=== PATIENT | male | born 2000 | race Caucasian/White ===

== ENCOUNTER 2024-01-09 19:08 | Emergency (ER) | payer BC, OTHER ==
--- NOTE | 2024-01-09 20:17 | RAD REPORT ---
EXAM DESCRIPTION: RAD - Hand Right 3 View - 01/09/2024 8:09 pm CLINICAL HISTORY: PAIN COMPARISON: No comparisons FINDINGS/IMPRESSION: Transverse oriented fracture of the mid fifth metacarpal diaphysis with minimal angulation.No significant focal degenerative changes.
--- NOTE | 2024-01-09 20:37 | EDPHYS ---
Physician Documentation [facility] Name: Julian Jamil Age: 24 yrs Sex: Male : 2000 Arrival Date: 01/09/2024 Time: 19:08 Bed 18 Private MD: ED Physician Braulio Smith HPI: 01/08 19:29 This 24 yrs old Male presents to ER via Ambulatory with complaints of Hand Injury. sb4 19:29 The patient or guardian reports injury, pain. The complaints affect the MCP of right sb4 little finger. Context: The problem was sustained at home, resulted from using own fist to strike, a solid object. Onset: The symptoms/episode began/occurred just prior to arrival. Modifying factors: The symptoms are alleviated by holding still, the symptoms are aggravated by movement. Associated signs and symptoms: The patient has no apparent associated signs or symptoms. The patient has not experienced similar symptoms in the past. The patient has not recently seen a physician. Historical: - Allergies: 19:21 No Known Allergies; jj7 - PMHx: 19:21 None; jj7 - PSHx: 19:21 None; jj7 - Immunization history:: Adult Immunizations up to date. - Infectious Disease History:: Denies. - Social history:: Smoking status: Patient reports the use of cigarette tobacco products, 2-3 A DAY, Reported history of juuling and/or vaping. Patient uses alcohol, but reports only rare drinking. ROS: 19:29 Constitutional: Negative for fever, chills, and weight loss, sb4 19:29 MS/extremity: Positive for injury or acute deformity, pain, swelling, of the dorsal aspect of proximal phalanx of right little finger and dorsum of right hand, 19:29 All other systems are negative, Exam: 19:29 Constitutional: This is a well developed, well nourished patient who is awake, alert, sb4 and in no acute distress. Head/Face: Normocephalic, atraumatic. Eyes: Extra-ocular motions intact. Periorbital areas with no swelling, redness, or edema. ENT: Mucous membranes moist. Skin: Warm, dry with normal turgor. Normal color with no rashes, no lesions, and no evidence of cellulitis. Neuro: Awake and alert, GCS 15, oriented to person, place, time, and situation. Motor strength 5/5 in all extremities. Sensory grossly intact. 19:29 Musculoskeletal/extremity: Sensation intact. Joints: the MCP of right little finger displays deformity, painful range of motion, swelling, tenderness, Vital Signs: 19:17 BP 153 / 79; Pulse 94; Resp 18; Temp 98.3; Pulse Ox 98% ; Weight 83.91 kg; Height 6 ft. jj7 3 in. ; Pain 5/10; 21:00 BP 122 / 64; Pulse 80; Resp 16; Temp 98.5(O); Pulse Ox 100% on R/A; Pain 4/10; tl4 19:17 Body Mass Index 23.12 (83.91 kg, 190.5 cm) jj7 19:17 Pain Scale: Adult jj7 21:00 Pain Scale: Adult tl4 MDM: 19:19 Patient medically screened. sb4 20:02 Independent interpretation of the following test(s) in the Emergency Department X-Ray: sb4 My interpretation is my interpretation of the hand xray image is acute nondisplaced fracture of shaft of right fifth metacarpal . 20:28 Data reviewed: vital signs, nurses notes, radiologic studies, and as a result, I will sb4 discharge patient. Counseling: I had a detailed discussion with the patient and/or guardian regarding the historical points, exam findings, and any diagnostic results supporting the discharge/admit diagnosis, radiology results, the need for outpatient follow up, a orthopedic surgeon, to return to the emergency department if symptoms worsen or persist or if there are any questions or concerns that arise at home. 01/08 19:24 Order name: Hand Right 3 View XRAY; Complete Time: 20:18 sb4 01/08 20:27 Order name: Ulnar Gutter splint; Complete Time: 21:16 sb4 Administered Medications: No medications were administered Disposition Summary: 01/09/24 20:36 Discharge Ordered Notes: Location: Home sb4 Problem: new sb4 Symptoms: have improved sb4 Condition: Stable sb4 Diagnosis - Nondisplaced fracture of shaft of fifth metacarpal bone, right hand sb4 Followup: sb4 - With: Jeff Mendoza MD - When: 1 week - Reason: Recheck today's complaints, Re-evaluation by your physician Discharge Instructions: - Discharge Summary Sheet sb4 - Boxer's Fracture sb4 Forms: - Patient Portal Instructions sb4 - Leadership Thank You Letter sb4 Signatures: Dispatcher [employer] Sandra Phelps RN RN jj7 Cassie Sigala PA-C PA-C sbJaycee
--- NOTE | 2024-01-09 20:37 | ER ---
Nurse's Notes [facility] Name: Julian Jamil Age: 24 yrs Sex: Male : 2000 Arrival Date: 01/09/2024 Time: 19:08 Bed 18 Private MD: Diagnosis: Nondisplaced fracture of shaft of fifth metacarpal bone, right hand Presentation: 01/08 19:17 Chief complaint: Patient states: PUNCHED A METAL SHED WITH HIS RIGHT HAND 30 MINUTES jj7 AGO. NOW HAVING PAIN AND SWELLING TO HAND. Coronavirus screen: At this time, the client does not indicate any symptoms associated with coronavirus-19. Ebola Screen: No symptoms or risks identified at this time. Initial Sepsis Screen: Does the patient meet any 2 criteria? HR > 90 bpm. Yes Does the patient have a suspected source of infection? No. Patient's initial sepsis screen is negative. Risk Assessment: Do you want to hurt yourself or someone else? Patient reports no desire to harm self or others. Onset of symptoms was January 09, 2024. 19:17 Method Of Arrival: Ambulatory 7 19:17 Acuity: ADRIA 4 jj7 Triage Assessment: 19:21 General: Appears in no apparent distress. comfortable, Behavior is calm, cooperative, jj7 appropriate for age. Pain: Complains of pain in right hand Pain currently is 6 out of 10 on a pain scale. Musculoskeletal: Swelling present in right hand. Injury Description: PUNCHED A WALL. Historical: - Allergies: 19:21 No Known Allergies; jj7 - PMHx: 19:21 None; jj7 - PSHx: 19:21 None; jj7 - Immunization history:: Adult Immunizations up to date. - Infectious Disease History:: Denies. - Social history:: Smoking status: Patient reports the use of cigarette tobacco products, 2-3 A DAY, Reported history of juuling and/or vaping. Patient uses alcohol, but reports only rare drinking. Screenin:23 [facility] ED Fall Risk Assessment (Adult) History of falling in the last 3 months, jj7 including since admission No falls in past 3 months (0 pts) Confusion or Disorientation No (0 pts) Intoxicated or Sedated No (0 pts) Impaired Gait No (0 pts) Mobility Assist Device Used No (0 pt) Altered Elimination No (0 pt) Score/Fall Risk Level 0 - 2 = Low Risk Oriented to surroundings, Maintained a safe environment, Educated pt \T\ family on fall prevention, incl call for assistance when getting out of bed. Abuse screen: Denies threats or abuse. Nutritional screening: No deficits noted. Tuberculosis screening: No symptoms or risk factors identified. Assessment: 21:00 Reassessment: No changes from previously documented assessment. Patient and/or family tl4 updated on plan of care and expected duration. Pain level reassessed. Patient is alert, oriented x 3, equal unlabored respirations, skin warm/dry/pink. Vital Signs: 19:17 BP 153 / 79; Pulse 94; Resp 18; Temp 98.3; Pulse Ox 98% ; Weight 83.91 kg; Height 6 ft. jj7 3 in. ; Pain 5/10; 21:00 BP 122 / 64; Pulse 80; Resp 16; Temp 98.5(O); Pulse Ox 100% on R/A; Pain 4/10; tl4 19:17 Body Mass Index 23.12 (83.91 kg, 190.5 cm) jj7 19:17 Pain Scale: Adult jj7 21:00 Pain Scale: Adult tl4 ED Course: 19:16 Patient arrived in ED. gm2 19:18 Cassie Sigala PA-C [facility]. sb4 19:18 Braulio Smith MD is Attending Physician. sb4 19:21 Triage completed. jj7 19:21 Arm band placed on left wrist. jj7 19:23 Patient has correct armband on for positive identification. jj7 20:11 Hand Right 3 View XRAY In Process Unspecified. EDMS 20:36 Jeff Mendoza MD is Referral Physician. sb4 21:15 Provided Education on: call ray. tl4 21:15 No provider procedures requiring assistance completed. Patient did not have IV access tl4 during this emergency room visit. Administered Medications: No medications were administered Medication: 19:23 VIS not applicable for this client. jj7 Outcome: 20:36 Discharge ordered by . sb4 21:00 Discharged to home ambulatory, tl4 21:00 Condition: stable 21:00 Discharge instructions given to patient, Instructed on discharge instructions, follow up and referral plans. Demonstrated understanding of instructions, follow-up care, 21:15 Patient left the ED. tl4 Signatures: Dispatcher [employer] Sandra Phelps RN RN jj7 Cassie Sigala PA-C PAEnid [email or web address] Marjorie Romano gm2 Brian Allred, RN RN tl4
[2024-01-09 21:43] VITALS: BP 122/64; TEMP 98.5; O2SAT 100
== END 2024-01-09 21:15 | disposition home or self-care (01) ==
LOC: ER 19:08
DX: S62.356A Nondisplaced fracture of shaft of fifth metacarpal bone, right hand, initial encounter for closed fracture (principal)
CPT/HCPCS: 99283